=== PATIENT | female | born 1980 | race Hispanic/Latino ===

== ENCOUNTER 2022-04-04 21:59 | Emergency (ER) | payer SELFPAY ==
[2022-04-05 03:33] LABS: Bilirubin,Urine NEG (Negative); Blood,Urine NEG (Negative); Color,Urine Yellow (Yellow); Protein,Urine <15 mg/dL mg/dL (Negative); Urobilinogen,Urine < 2.0 mg/dL (<2.0)
[2022-04-05] MEDS ORDERED: ONDANSETRON 4 MG/2 ML INJ IV ONE (07:26)
[2022-04-05] MEDS ORDERED: SODIUM CHLORIDE 0.9% 1000 ML 1,000 ML IV ONE (07:26)
[2022-04-05] MEDS ORDERED: MORPHINE 4 MG/1 ML INJ IV ONE (07:26)
--- NOTE | 2022-04-05 07:32 | Emergency Department Report ---
ED Abdominal Pain HPI - General Chief Complaint: Abdominal Pain Stated Complaint: SEVERE PANCREATITIS/ABD PAIN/DIARRHEA/VOMITING Time Seen by Provider: 04/05/22 07:17 Source: patient Mode of arrival: Ambulatory Limitations: No Limitations - History of Present Illness Initial Comments: 42 year old caucasion female with pmhx of pancreatitis, and ETOH abuse presents with c/o upper abd pain. Onset 2 days ago. She states pain radiates into her back and she has associated abdominal distension, nausea and vomiting. She admits that she still drinks but is now down to 2 beers per day. She last drank yesterday evening. She has pancreatic cyst drained and stent placement to pancreas in past. MD Complaint: abdominal pain -: Gradual, days(s) (2) Location: LUQ, RUQ, epigastric Radiation: back Severity: severe Severity scale (0 -10): 9 Consistency: constant Improves With: nothing Worsens With: eating Context: other (hx of pancreatitis) Associated Symptoms: nausea, vomiting - Related Data LMP (females 10-50): 2 months Previous Rx's Medication Instructions Recorded Last Taken Type Pantoprazole [Protonix TAB] 20 mg PO BID #60 04/05/22 Unknown Rx Promethazine [Phenergan] 25 mg PO Q6HR PRN #15 tab 04/05/22 Unknown Rx traMADoL [Ultram] 50 mg PO Q4HR PRN #15 tablet 04/05/22 Unknown Rx Allergies Allergy/AdvReac Type Severity Reaction Status Date / Time amitriptyline [From Elavil] Allergy Unknown Verified 04/05/22 02:32 buprenorphine [From Suboxone] Allergy Unknown Verified 04/05/22 02:32 carisoprodol [From Soma] Allergy Unknown Verified 04/05/22 02:32 cyclobenzaprine Allergy Unknown Verified 04/05/22 02:32 [From Flexeril] fentanyl Allergy Unknown Verified 04/05/22 02:32 naloxone [From Suboxone] Allergy Unknown Verified 04/05/22 02:32 onion Allergy Unknown Verified 04/05/22 02:32 oxycodone Allergy Unknown Verified 04/05/22 02:32 theophylline Allergy Unknown Verified 04/05/22 02:32 ED Review of Systems ROS: Stated complaint: SEVERE PANCREATITIS/ABD PAIN/DIARRHEA/VOMITING Other details as noted in HPI Comment: All other systems reviewed and negative Gastrointestinal: abdominal pain, nausea, vomiting Musculoskeletal: back pain ED Past Medical Hx - Medications Home Medications: Home Medications Medication Instructions Recorded Confirmed Last Taken Type Pantoprazole [Protonix TAB] 20 mg PO BID #60 04/05/22 Unknown Rx Promethazine [Phenergan] 25 mg PO Q6HR PRN #15 tab 04/05/22 Unknown Rx traMADoL [Ultram] 50 mg PO Q4HR PRN #15 tablet 04/05/22 Unknown Rx ED Physical Exam - General Limitations: No Limitations General appearance: alert, in no apparent distress - Head Head exam: Present: atraumatic, normocephalic, normal inspection - Eye Eye exam: Present: normal appearance, PERRL, EOMI Pupils: Present: normal accommodation - ENT ENT exam: Present: mucous membranes dry - Neck Neck exam: Present: normal inspection, full ROM - Respiratory Respiratory exam: Present: normal lung sounds bilaterally. Absent: respiratory distress, wheezes, rales, rhonchi - Cardiovascular Cardiovascular Exam: Present: regular rate, normal rhythm, normal heart sounds - GI/Abdominal GI/Abdominal exam: Present: soft, tenderness (epigastric/LUQ), guarding (mild epigastric and LUQ). Absent: distended - Back Exam Back exam: Present: normal inspection, full ROM - Neurological Exam Neurological exam: Present: alert, oriented X3, CN II-XII intact, normal gait - Psychiatric Psychiatric exam: Present: normal affect, normal mood - Skin Skin exam: Present: intact ED Course Vital Signs 04/05/22 04/05/22 02:27 09:59 Temperature 98.3 F Pulse Rate 101 H 80 Respiratory 18 Rate Blood Pressure 117/91 Blood Pressure 96/69 [Left] O2 Sat by Pulse 97 Oximetry ED Medical Decision Making - Lab Data Result diagrams: 04/05/22 07:38 04/05/22 07:38 Laboratory Results - last 24 hr 04/05/22 04/05/22 04/05/22 07:38 07:38 08:10 WBC 4.6 RBC 4.53 Hgb 13.7 Hct 41.1 MCV 91 MCH 30 MCHC 33 RDW 29.7 H Plt Count 142 Sodium 137 Potassium 3.9 Chloride 104.6 Carbon Dioxide 18 L Anion Gap 18 BUN 5 L Creatinine 0.4 L Estimated GFR > 60 BUN/Creatinine Ratio 13 Glucose 106 H Calcium 8.5 Total Bilirubin 0.30 Direct Bilirubin < 0.2 Indirect Bilirubin 0.1 AST 37 ALT 18 Alkaline Phosphatase 232 H Total Protein 7.1 Albumin 3.7 L Albumin/Globulin Ratio 1.1 Lipase 48 HCG, Quant < 2 Urine Color Urine Turbidity Urine pH Ur Specific [place] Urine Protein Urine Glucose (UA) Urine Ketones Urine Blood Urine Nitrite Urine Bilirubin Urine Urobilinogen Ur Leukocyte Esterase Urine WBC (Auto) Urine RBC (Auto) U Epithel Cells (Auto) 04/05/22 Unknown WBC RBC Hgb Hct MCV MCH MCHC RDW Plt Count Sodium Potassium Chloride Carbon Dioxide Anion Gap BUN Creatinine Estimated GFR BUN/Creatinine Ratio Glucose Calcium Total Bilirubin Direct Bilirubin Indirect Bilirubin AST ALT Alkaline Phosphatase Total Protein Albumin Albumin/Globulin Ratio Lipase HCG, Quant Urine Color Yellow Urine Turbidity Clear Urine pH 5.0 Ur Specific [place] 1.004 Urine Protein <15 mg/dl Urine Glucose (UA) Neg Urine Ketones Neg Urine Blood Neg Urine Nitrite Neg Urine Bilirubin Neg Urine Urobilinogen < 2.0 Ur Leukocyte Esterase Neg Urine WBC (Auto) 1.0 Urine RBC (Auto) 2.0 U Epithel Cells (Auto) 5.0 - Radiology Data Radiology results: report reviewed [facility] [address] [place] [address] Cat Scan Report Signed Patient: FROYLAN CISNEROS MR#: [id number] : 1980 Acct:[id number] Age/Sex: 42 / F ADM Date: 04/04/22 Loc: ED Attending Dr: Ordering Physician: JOSE A OJEDA Date of Service: 04/05/22 Procedure(s): CT abdomen pelvis w con Accession Number(s): [id number] cc: JOSE A OJEDA CT ABDOMEN AND PELVIS WITH CONTRAST INDICATION / CLINICAL INFORMATION: upper abd pain/distension/hx pancreatitis. TECHNIQUE: Axial CT images were obtained through the abdomen and pelvis after 100 cc of Omnipaque 300 IV contrast. Sagittal and coronal reformatted images. All CT scans at this location are performed using CT dose reduction for ALARA by means of automated exposure control. COMPARISON: None available. FINDINGS: LOWER CHEST: No significant abnormality. LIVER: Mild cirrhotic configuration of the liver is suspected. No focal liver mass. GALLBLADDER: No significant abnormality. BILE DUCTS: No significant abnormality. PANCREAS: There are moderate diffuse pancreatic calcifications consistent with chronic pancreatitis. Mild surrounding inflammatory fat stranding is identified suggesting acute on chronic pancreatitis. There is no discrete pancreatic mass or pseudocyst. SPLEEN: No significant abnormality. The spleen measures 8 cm in length. ADRENALS: No significant abnormality. RIGHT KIDNEY and URETER: No significant abnormality. LEFT KIDNEY and URETER: No significant abnormality. STOMACH and SMALL BOWEL: There is mild diffuse gastric mucosal thickening which could represent a nonspecific gastritis. No focal ulceration is appreciated. The small bowel loops are unremarkable. COLON: There is mild circumferential thickening of the distal transverse colon near the splenic fracture. This is in the vicinity of the pancreatic tail. This may be reactive in nature. Otherwise a focal colitis could be considered. There is no evidence for obstruction or obvious mass. APPENDIX: No significant abnormality. PERITONEUM: No free fluid. No free air. No fluid collection. LYMPH NODES: No significant adenopathy. AORTA and ARTERIES: No significant abnormality. IVC and VEINS: No significant abnormality. URINARY BLADDER: No significant abnormality. REPRODUCTIVE ORGANS: No significant abnormality. Bilateral tubal ligation clips are noted. ADDITIONAL FINDINGS: None. SKELETAL SYSTEM: No acute abnormality or bone lesion. 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 IMPRESSION: Findings consistent with acute on chronic pancreatitis. No obvious pancreatic mass or pseudocyst. Mild cirrhotic configuration of the liver is suspected. Mild gastric wall thickening could represent a mild nonspecific gastritis. No focal ulceration is detected. Focal circumferential thickening of the distal transverse colon is identified which is probably reactive secondary to pancreatitis. A focal colitis could also be considered. Signer Name: Chris Falcon Jr, MD Signed: 04/05/2022 9:09 AM Workstation Name: [id number] Transcribed By: TTR Dictated By: CHRIS FALCON JR, MD Electronically Authenticated By: CHRIS FALCON JR, MD Signed Date/Time: 04/05/22 0909 - Medical Decision Making 0946: Labs reviewed, alk phos elevated at 232 but remaining labs unremarkable and lipase also normal. CT abd and pelvis reviewed and shows Findings consistent with acute on chronic pancreatitis. No obvious pancreatic mass or pseudocyst. Mild cirrhotic configuration of the liver is suspected. Mild gastric wall thickening could represent a mild nonspecific gastritis. No focal ulceration is detected. Focal circumferential thickening of the distal transverse colon is identified which is probably reactive secondary to pancreatitis. A focal colitis could also be considered. Discussed case with, Dr. Proctor, he recommends that as long as patient pain is under control, there is no indication for admission at this time Patient currently resting comfortably in the room. She admits that she did have relief of her pain after the morphine but she feels like the pain is coming back. Repeat abdominal exam shows a soft nontender abdomen. She is not toxic or ill-appearing. She is not in any significant distress. Her repeat vital signs are stable. Discussed lab results as well as imaging results with patient. Patient states that she actually does not want to get admitted, and agrees with being discharged home and is requesting prescription for tramadol and Phenergan and Protonix. She will be given referral information to primary care doctor and GI. Patient understands to return if worse. She expressed understanding of all instructions and agree with plan. Patient was stable at time of discharge. Critical care attestation.: If time is entered above; I have spent that time in minutes in the direct care of this critically ill patient, excluding procedure time. ED Disposition Clinical Impression: Pancreatitis Disposition: 01 HOME / SELF CARE / HOMELESS Is pt being admited?: No Does the pt Need Aspirin: No Condition: Stable Instructions: Chronic Pancreatitis, Acute Pancreatitis, Abdominal Pain (ED) Additional Instructions: I recommend that you take the tramadol, the Phenergan and the Protonix as prescribed. A primary care doctor as well as GI specialist will be provided to you and will be on your discharge instructions for follow-up. I do advise that you try to follow-up with a detox center to help stop drinking. Return to the ER if at any point your symptoms worsens in any way. Prescriptions: Promethazine [Phenergan] 25 mg PO Q6HR PRN #15 tab PRN Reason: Nausea Pantoprazole [Protonix TAB] 20 mg PO BID #60 traMADoL [Ultram] 50 mg PO Q4HR PRN #15 tablet PRN Reason: Pain Referrals: PRIMARY MD KADEN [Primary Care Provider] - 3-5 Days KWASI VILLAFUERTE MD [Staff Physician] - 3-5 Days [facility] [Provider Group] - 3-5 Days Forms: Work/School Release Form(ED) Time of Disposition: 09:52
[2022-04-05 07:56] LABS: Hematocrit 41.1 % (30.3-42.9); Hemoglobin 13.7 gm/dl (10.1-14.3); Mean Corpuscular HGB Conc 33 % (30-34); Mean Corpuscular Volume 91 fl (79-97); Platelet Count 142 K/mm3 (140-440); Red Blood Count 4.53 M/mm3 (3.65-5.03)
[2022-04-05 07:57] LABS: Red Cell Distribution Width 29.7 % (13.2-15.2)
[2022-04-05 08:19] LABS: Alanine Aminotransferase 18 units/L (7-56); Albumin 3.7 g/dL (3.9-5); Blood Urea Nitrogen 5 mg/dL (7-17); Calcium 8.5 mg/dL (8.4-10.2); Hemolysis Index 8
[2022-04-05 08:27] LABS: BUN/Creatinine Ratio 13; Bilirubin,Direct < 0.2 mg/dL (0-0.2)
--- NOTE | 2022-04-05 09:13 | Cat Scan Report ---
CT ABDOMEN AND PELVIS WITH CONTRAST INDICATION / CLINICAL INFORMATION: upper abd pain/distension/hx pancreatitis. TECHNIQUE: Axial CT images were obtained through the abdomen and pelvis after 100 cc of Omnipaque 300 IV contras t. Sagittal and coronal reformatted images. All CT scans at this location are performed using CT dose reduction for ALARA by means of automated exposure control. COMPARISON: None available. FINDINGS: LOWER CHEST: No significant abnormality. LIVER: Mild cirrhotic configuration of the liver is suspected. No focal liver mass. GALLBLADDER: No significant abnormality. BILE DUCTS: No significant abnormality. PANCREAS: There are moderate diffuse pancreatic calcifications consistent with chronic pancreatitis. Mild surrounding inflammatory fat stranding is identified suggesting acute on chronic pancreatitis. T here is no discrete pancreatic mass or pseudocyst. SPLEEN: No significant abnormality. The spleen measures 8 cm in length. ADRENALS: No significant abnormality. RIGHT KIDNEY and URETER: No significant abnormality. LEFT KIDNEY and URETER: No significant abnormality. STOMACH and SMALL BOWEL: There is mild diffuse gastric mucosal thickening which could represent a non specific gastritis. No focal ulceration is appreciated. The small bowel loops are unremarkable. COLON: There is mild circumferential thickening of the distal transverse colon near the splenic fract ure. This is in the vicinity of the pancreatic tail. This may be reactive in nature. Otherwise a foca l colitis could be considered. There is no evidence for obstruction or obvious mass. APPENDIX: No significant abnormality. PERITONEUM: No free fluid. No free air. No fluid collection. LYMPH NODES: No significant adenopathy. AORTA and ARTERIES: No significant abnormality. IVC and VEINS: No significant abnormality. URINARY BLADDER: No significant abnormality. REPRODUCTIVE ORGANS: No significant abnormality. Bilateral tubal ligation clips are noted. ADDITIONAL FINDINGS: None. SKELETAL SYSTEM: No acute abnormality or bone lesion. 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 IMPRESSION: Findings consistent with acute on chronic pancreatitis. No obvious pancreatic mass or pseudocyst. Mild cirrhotic configuration of the liver is suspected. Mild gastric wall thickening could represent a mild nonspecific gastritis. No focal ulceration is det ected. Focal circumferential thickening of the distal transverse colon is identified which is probably react veronica secondary to pancreatitis. A focal colitis could also be considered. Signer Name: Chris Falcon Jr, MD Signed: 04/05/2022 9:09 AM Workstation Name: [id number]
[2022-04-05 09:36] LABS: Total Cells Counted 100
[2022-04-05 09:43] LABS: Anisocytosis 1+; Poikilocytosis Few; Spherocytes Rare
[2022-04-05 09:44] LABS: Large Platelets Rare; Ovalocytes Rare; Platelet Estimate Consistent w Auto
[2022-04-05] MEDS ORDERED: MORPHINE 2 MG/1 ML INJ IV ONE (09:45)
[2022-04-05 11:57] VITALS: BP 128/91
== END 2022-04-05 11:56 | disposition home or self-care (01) ==
LOC: ED 21:59
DX: K85.90 Acute pancreatitis without necrosis or infection, unspecified (principal); Z88.6 Allergy status to analgesic agent; Z88.1 Allergy status to other antibiotic agents; Z88.8 Allergy status to other drugs, medicaments and biological substances; Z91.09 Other allergy status, other than to drugs and biological substances; Z79.899 Other long term (current) drug therapy
CPT/HCPCS: 36415; 74177; 80048; 80076; 81001; 83690; 84702; 85007; 85025; 96361; 96374; 96375; 96376; 99284; J2270; J2405; J7030; Q9967